=== PATIENT | female | born 1960 | race Caucasian/White ===

== ENCOUNTER → 2017-03-10 | Outpatient (CLI) | payer OTHER | LOC: BRMIMAGING 08:55 | PROVIDERS: ATTEND Family Medicine Sports Medicine | DX: R92.8 Other abnormal and inconclusive findings on diagnostic imaging of breast (principal) | CPT/HCPCS: 76641-PO ==

== ENCOUNTER → 2017-08-30 | Outpatient (CLI) | payer OTHER | LOC: FIMAGING 11:54 | PROVIDERS: ATTEND Family Medicine Sports Medicine | DX: R92.8 Other abnormal and inconclusive findings on diagnostic imaging of breast (principal) ==